=== PATIENT | female | born 2000 | race Caucasian/White ===

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

== ENCOUNTER 2022-05-16 08:05 | Inpatient (IN) | payer MEDICAID ==
[2022-05-16] MEDS ORDERED: Sodium Chloride 0.9% 10 ML Syringe FLUSH PRN (20:01)
[2022-05-16] MEDS ORDERED: Misoprostol 25 MCG (1/4 of 100 MCG) Tab VAG ONE (20:06)
[2022-05-16] MEDS ORDERED: Oxytocin/Lactated Ringers 10 UNIT/1,000 ML BAG IV SCH ×2 (20:15→23:45)
[2022-05-16] MEDS: Lactated Ringers 1,000 ML IV SCH ×2 (22:08→23:16)
[2022-05-16] MEDS ORDERED: Terbutaline 1 MG/ML SDV ONE (22:24)
[2022-05-16] MEDS ORDERED: Terbutaline 1 MG/ML SDV SUBCUT ONE (22:24)
[2022-05-16] MEDS ORDERED: Misoprostol 25 MCG (1/4 of 100 MCG) Tab VAG SCH (23:30)
[2022-05-17] MEDS: Sodium Chloride 0.9% 10 ML Syringe FLUSH SCH ×2 (00:54→16:14)
[2022-05-17] MEDS: Nalbuphine 10 MG/0.5 ML Syringe IVPUSH PRN ×2 (03:56→05:45)
[2022-05-17] MEDS: Lactated Ringers 1,000 ML IV SCH ×2 (03:59→05:36)
[2022-05-17] MEDS ORDERED: Witch Hazel Medicated Pads 40/Jar TOP PRN (10:07)
[2022-05-17] MEDS ORDERED: Acetaminophen 325 MG Tab PO PRN (10:07)
[2022-05-17] MEDS ORDERED: Docusate Sodium 100 MG Cap PO PRN (10:07)
[2022-05-17] MEDS ORDERED: Ibuprofen 600 MG Tab PO PRN (10:07)
[2022-05-17] MEDS ORDERED: Benzocaine/Menthol 20%-0.5% Spray 78 GM Cannister TOP PRN (10:07)
[2022-05-17] MEDS: Prenatal Multivitamin with Calcium/Folic Acid/Iron Tab PO SCH (10:31)
[2022-05-18] MEDS: Prenatal Multivitamin with Calcium/Folic Acid/Iron Tab PO SCH (09:36)
== END 2022-05-18 12:25 | disposition home or self-care (01) | DRG 807 ==
LOC: JD.OB 08:05 → OBSVTOIN 05-17 08:05 → JD.OB 05-17 08:06
PROVIDERS: ADMIT Obstetrics & Gynecology; ATTEND Obstetrics & Gynecology
PROC: 10E0XZZ Delivery of Products of Conception, External Approach (ICD-10-PCS; principal; 2022-05-17)
PROC: 10907ZC Drainage of Amniotic Fluid, Therapeutic from Products of Conception, Via Natural or Artificial Opening (ICD-10-PCS; 2022-05-17)
PROC: 3E0P7VZ Introduction of Hormone into Female Reproductive, Via Natural or Artificial Opening (ICD-10-PCS; 2022-05-17)
PROC: 3E033VJ Introduction of Other Hormone into Peripheral Vein, Percutaneous Approach (ICD-10-PCS; 2022-05-17)
PROC: 0HQ9XZZ Repair Perineum Skin, External Approach (ICD-10-PCS; 2022-05-17)
DX: O99.52 Diseases of the respiratory system complicating childbirth (principal); Z37.0 Single live birth; J45.909 Unspecified asthma, uncomplicated; O99.344 Other mental disorders complicating childbirth; F41.9 Anxiety disorder, unspecified; F32.A Depression, unspecified; O70.0 First degree perineal laceration during delivery; Z88.0 Allergy status to penicillin; Z3A.39 39 weeks gestation of pregnancy
CPT/HCPCS: 36415; 59025; 59409; 85025; 86592; A9270-GY; J2300; J2590; J3105; J7120